=== PATIENT | male | born 1960 | race Caucasian/White ===

== ENCOUNTER 2018-10-30 12:25 | Day surgery (SDC) | payer BC ==
[~2018-10-30] VITALS: Ht 175.3 cm; Wt 98.4 kg
[2018-10-30] VITALS (10 sets, daily range): BP systolic 129–156; BP diastolic 81–87
--- NOTE | 2018-10-30 07:56 | Pre-Procedure Note/Attestation ---
Pre-Procedure Note/Attestation Complete Prior to Procedure Planned Procedure: left - Removal of conjunctival and cornea lesion left eye, including cryotherapy Procedure Narrative: Removal of conjunctival and cornea lesion, left eye including cryotherapy Indications for Procedure Pre-Operative Diagnosis: Suspicious cornea and conjunctival lesion, left eye Attestation I attest that I discussed the nature of the procedure; its benefits; risks and complications; and alternatives (and the risks and benefits of such alternatives ), prior to the procedure, with the patient (or the patient's legal territory service representative). I attest that, if there was a reasonable possibility of needing a blood transfusion, the patient (or the patient's legal territory service representative) was given the [place] [facility] standardized written summary, pursuant to the Wilmer Tang Blood Safety Act ([place] Health and Safety Code # 1645, as amended). I attest that I re-evaluated the patient just prior to the surgery and that there has been no change in the patient's H&P, except as documented below: Boby Valencia MD Oct 30, 2018 07:56
[~2018-10-30 12:25] MED LIST: ANDROGEL2.5 GM TD; CENTRUM SILVER1 EAC2 PO; Ciprofloxacin Opth Soln 2.5ml ONE; GLUCOSAMINE PO; LATANOPROST2.5 ML BOTH EYES; MINOCYCLINE HCL50 M1 PO; OMEPRAZOLE40 M1 ORAL; Tobradex Opth Susp 2.5ml ONE; VITAMIN C500 M1 ORAL
[2018-10-30] MEDS ORDERED: EPINEPHrine 1mg/1ml Amp ONE (12:43)
[2018-10-30] MEDS ORDERED: Fluorescein Strips ONE (12:43)
[2018-10-30] MEDS ORDERED: Lidocaine 1% MPF 10mg/ml 5ml ONE ×2 (12:43→14:22)
[2018-10-30] MEDS ORDERED: Carbachol 0.01% Op Soln 1.5ml vial ONE (12:43)
[2018-10-30] MEDS ORDERED: Povidone-Iodine 5% opth solution ONE (12:44)
[2018-10-30] MEDS ORDERED: Pred Forte 1% Opth Susp 1ml ONE (12:44)
[2018-10-30] MEDS ORDERED: BSS 15ml BTL ONE (12:44)
[2018-10-30] MEDS ORDERED: BSS 500ml btl ONE (12:44)
[2018-10-30] MEDS ORDERED: Dexamethasone 4mg/ml vial ONE (12:44)
[2018-10-30] MEDS: Ciprofloxacin Opth Soln 2.5ml LEFT EYE SCH ×3 (13:01→13:15)
[2018-10-30] MEDS: Tobradex Opth Susp 2.5ml LEFT EYE SCH ×3 (13:01→13:15)
[2018-10-30] MEDS ORDERED: CIALIS5 MG PO (13:06)
--- NOTE | 2018-10-30 14:15 | Anethesia Preoperative Eval ---
Anesthesia Pre-op PMH/ROS General Date of Evaluation: Oct 30, 2018 Time of Evaluation: 14:10 Anesthesiologist: Caity ASA Score: ASA 2 Mallampati Score Class I : Soft palate, uvula, fauces, pillars visible Class II: Soft palate, uvula, fauces visible Class III: Soft palate, base of uvula visible Class IV: Only hard plate visible Mallampati Classification: Class II Surgeon: Annie Diagnosis: L eye lesion Surgical Procedure: Excision of L eye lesion Anesthesia History: none Family History: no anesthesia problems Allergies: Coded Allergies: No Known Allergies (Unverified , 10/30/18) Medications: see eMAR Patient NPO?: Yes Past Medical History Cardiovascular: Reports: HTN - mild; Denies: CAD, DC, valve dz, arrhythmia, other Pulmonary: Denies: asthma, COPD, CHARISMA, other Gastrointestinal/Genitourinary: Reports: GERD; Denies: CRI, ESRD, other Neurologic/Psychiatric: Denies: dementia, CVA, depression/anxiety, TIA, other Endocrine: Denies: DM, hypothyroidism, steroids, other HEENT: Denies: cataract (L), cataract (R), glaucoma, KIVALINA (L), KIVALINA (R), other Hematology/Immune: Denies: anemia, DVT, bleeding disorder, other Musculoskeletal/Integumentary: Denies: OA, RA, DJD, DDD, edema, other Other: obesity PMH Narrative: as above PSxH Narrative: See H&P Anesthesia Pre-op Phys. Exam Physician Exam Last Vital Signs Date Time Temp Pulse Resp B/P (MAP) Pulse Ox O2 Delivery O2 Flow Rate FiO2 10/30/18 13:09 Room Air 10/30/18 13:04 98.0 66 18 133/81 95 Constitutional: NAD Neurologic: CN 2-12 intact Cardiovascular: RRR, no M/R/G Respiratory: CTA Gastrointestinal: other - obesity Airway Exam Mallampati Score: Class II MO: limited Neck: short ROM: limited Teeth: missing Dentures: no upper, no lower Anesthesia Pre-op A/P Labs see chart Studies Pre-op Studies: EKG - NSR Risk Assessment & Plan Assessment: ASA 2 Plan: GA with LMA surgeon request Status Change Before Surgery: No Pre-Antibiotics Drug: none Alejandro Carolina MD Oct 30, 2018 14:15
[2018-10-30] MEDS ORDERED: LR 1000ml 1,000 ML IVLG SCH (14:16)
[2018-10-30] MEDS ORDERED: Propofol 200mg/20ml IV ONE (14:22)
[2018-10-30] MEDS ORDERED: Midazolam 2mg/2ml Inj ONE (14:22)
[2018-10-30] MEDS ORDERED: fentaNYL 100 mcg/2 mL IV ONE (14:22)
[2018-10-30] MEDS ORDERED: Ketorolac 30mg Inj IV PRN (14:30)
[2018-10-30] MEDS ORDERED: Hydromorphone 0.5mg/0.5ml inj IVP PRN (14:30)
[2018-10-30] MEDS ORDERED: Bupivacaine 0.75% 30ml vial INJ ONE (14:59)
[2018-10-30] MEDS ORDERED: Vancomycin 1gm vial IVPB ONE (15:11)
[2018-10-30] MEDS ORDERED: Sterile Water Irrig 1000ml IRRIG ONE (15:30)
[2018-10-30] MEDS ORDERED: LR 1000ml ONE (15:30)
[2018-10-30] MEDS ORDERED: Tobradex Opth Oint 3.5gm ONE (15:30)
[2018-10-30] MEDS ORDERED: NS Irrig 1000ml ONE (15:30)
--- NOTE | 2018-10-30 16:52 | Discharge Instructions ---
Discharge Instructions Discharge Instructions Follow Up Orders Followup tomorrow in Dr Valencia's office Leave patch and shield in place For Congestive Heart Failure Reminder Report to your physician any weight gain of 5 pounds or more in one week. Boby Valencia MD Oct 30, 2018 16:52
--- NOTE | 2018-10-30 17:00 | Immediate Post-Op Evaluation ---
Immediate Post-Op Evalulation Immediate Post-Op Evalulation Procedure: Excision of L eye lesion Date of Evaluation: Oct 30, 2018 Time of Evaluation: 16:58 IV Fluids: 600 Blood Products: none Estimated Blood Loss: min Urinary Output: none Blood Pressure Systolic: 143 Blood Pressure Diastolic: 83 Pulse Rate: 70 Respiratory Rate: 20 O2 Sat by Pulse Oximetry: 98 Temperature (Fahrenheit): 97.6 Pain Score (1-10): 2 Nausea: No Vomiting: No Complications none Patient Status: reacts, patent, none Hydration Status: adequate Alejandro Carolina MD Oct 30, 2018 17:00
--- NOTE | 2018-10-30 17:02 | 48 Hour Post Anesthesia Eval ---
Post Anesthesia Evaluation Procedure: Excision of L eye lesion Date of Evaluation: Oct 30, 2018 Time of Evaluation: 17:50 Blood Pressure Systolic: 132 0: 52 Pulse Rate: 72 Respiratory Rate: 20 Temperature (Fahrenheit): 97.8 O2 Sat by Pulse Oximetry: 99 Airway: patent Nausea: No Vomiting: No Pain Intensity: 2 Hydration Status: adequate Cardiopulmonary Status: stable Mental Status/LOC: patient returned to baseline Follow-up Care/Observations: n/a Post-Anesthesia Complications: none Follow-up care needed: ready to discharge Alejandro Carolina MD Oct 30, 2018 17:02
--- NOTE | 2018-10-30 23:10 | Brief Operative Note ---
Immediate Post Operative Note Operative Note Pre-op Diagnosis: Suspicious cornea and conjunctival lesion, left eye Procedure: Keratectomy, OS Excision of conjunctival lesion, OS (parts adherent to sclera) Cryotherapy to cornea, OS Cryotherapy to conjunctiva, OS Placement of layered amniotic membrane transplant, OS Surgeon: Ivana Valencia MD [employer] Usher: none Anesthesiologist: Dr Carolina Anesthesia: general Specimen: yes - 1. 12:00 cornea at limbus lesion 2. Conjunctiva . (Suture with long tails at 12:00 and short tail at temporal margin (approx 2:00 temporal margin) Pigmented lesion from the approx 3:00 limbus Complications: none Fluids: see chart Implant(s) used?: No Boby Valencia MD Oct 30, 2018 23:10
--- NOTE | 2018-10-31 02:45 | Operative Note - Dictated ---
DATE OF OPERATION: 10/30/2018 SURGEON: Boby Valencia M.D. FAMILY AND MARRIAGE COUNSELLOR SURGEON: None. ANESTHESIOLOGIST: Alejandro Carolina M.D. ANESTHESIA: General with endotracheal intubation. PREOPERATIVE DIAGNOSES: 1. Suspicious corneal lesion, left eye. 2. Suspicious conjunctival lesion, left eye. PROCEDURE: 1. Keratectomy, left eye. 2. Excision of conjunctival lesion and partial sclera, left eye. 3. Cryotherapy to the left cornea. 4. Cryotherapy to left conjunctiva. 5. Placement of layered amniotic membrane transplant, left eye. SPECIMENS: Two specimens were submitted, one was the corneal lesion at the 12 o'clock limbus and one was conjunctival lesion that extended from 12 o'clock to approximately 6 o'clock. This lesion was removed with at least 3 mm of apparent clear margins without pigmentation grossly. A long suture tail was placed at the superior edge of the conjunctival lesion and the Vicryl suture was placed at approximate 2 o'clock temporal area. These were 8-0 Vicryl sutures. The one at the 2 o'clock area had short tails. COMPLICATIONS: None. INDICATIONS FOR SURGERY: The patient is status post removal of pigmented conjunctival lesion as well as corneal lesion several years ago and has remained free of any pigmented changes until almost recently. The previous removal of the lesion revealed possible primary melanosis. FINDINGS: There was pigmented limbus and corneal lesion at approximately 12 o'clock and there was a pigmented conjunctival lesion near the limbus from 12 o'clock to 6 o'clock and at approximately 3 o'clock. There were intermittent areas of pigmented corneal lesion also at the limbus from approximately 12 o'clock to 3 o'clock. These areas were also released. OPERATIVE NOTE: After informed consent was obtained, the patient was brought into the operating room, placed in supine position. Cardiac and respiratory monitors were attached. A time-out was performed and all criteria were met and everyone in the room agreed. The left eye was then draped and prepped in sterile manner for ocular surgery. The lid speculum was placed in the eye. The 1% lidocaine was used to try inject and elevate the conjunctiva lesion at approximately 1 o'clock. I then excised the conjunctival lesion from the limbus from approximately 12 o'clock down to approximately 06:30 and going at least 3 mm posterior to what was grossly the edge to any pigmented area. Some of the solution was adherent to the sclera, but this may also have been from previous surgeries. An angled crescent blade was used to remove the 12 o'clock corneal lesion. Cryotherapy to the conjunctival margins as well as to the limbus was performed using a freeze thaw technique. Amniotic membranes were applied in a layered fashion from approximately 12 o'clock to 6 o'clock using Tisseel glue. The lid speculum and drapes were removed from the eye and a retrobulbar block followed by modified Van Lint block was given using a 50:50 mix of 0.75% Marcaine and 1% lidocaine. TobraDex ointment was applied to the eye and after getting Pred Forte drops and ciprofloxacin drops, two patches and a shield was applied to the eye. The patient had a small pimple that had ruptured and caused a small area of cellulitis over the left cheek bone and a dose of vancomycin IV was given in the operating room. The patient left the operating room, awake, alert, and in stable condition. Boby Valencia M.D. DR: Josiah JOB#: [id number] CC:
== END 2018-10-30 18:50 | disposition home or self-care (01) ==
LOC: SUR 12:25
DX: H11.9 Unspecified disorder of conjunctiva (principal); H11.132 Conjunctival pigmentations, left eye; Z79.899 Other long term (current) drug therapy; I10 Essential (primary) hypertension; K21.9 Gastro-esophageal reflux disease without esophagitis; E66.9 Obesity, unspecified; Z68.32 Body mass index [BMI] 32.0-32.9, adult
CPT/HCPCS: 65400; 68110; J1885; J2250; J2704; J3010; J3370; J3490; 94003; 94150